=== PATIENT | male | born 1995 | race Caucasian/White ===

== ENCOUNTER 2025-07-30 11:34 | Emergency (ER) | payer OTHER ==
[~2025-07-30] VITALS: Ht 180.3 cm; Wt 70.3 kg
[2025-07-30] MEDS ORDERED: LIDOCAINE 1%-EPI 1:100,000 20 ML VIAL ONE (13:22)
[2025-07-30] MEDS ORDERED: TDAP [DIPH/PERTUSSIS/TET] 0.5 ML VIAL IM ONE (14:48)
[2025-07-30] MEDS: TDAP [DIPH/PERTUSSIS/TET] 0.5 ML VIAL IM ONE (15:03)
[2025-07-30 15:05] VITALS: BP 121/82; TEMP 97.9; O2SAT 99
== END 2025-07-30 15:05 | disposition home or self-care (01) ==
LOC: ER 11:43
DX: S01.01XA Laceration without foreign body of scalp, initial encounter (principal); S93.402A Sprain of unspecified ligament of left ankle, initial encounter; R41.82 Altered mental status, unspecified; W01.0XXA Fall on same level from slipping, tripping and stumbling without subsequent striking against object, initial encounter; Y93.89 Activity, other specified; Y92.89 Other specified places as the place of occurrence of the external cause; Y99.8 Other external cause status
CPT/HCPCS: 12001; 70450; 73610; 73630; 90471; 90715; 99285; A6403; J3490

== ENCOUNTER 2025-08-10 20:00 | Emergency (ER) | payer OTHER ==
[~2025-08-10] VITALS: Ht 180.3 cm; Wt 70.3 kg
[2025-08-10 20:07] VITALS: BP 121/74; TEMP 97.7; O2SAT 99
== END 2025-08-10 20:19 | disposition home or self-care (01) ==
LOC: ER 20:06
DX: S00.90XD Unspecified superficial injury of unspecified part of head, subsequent encounter (principal); F41.9 Anxiety disorder, unspecified; F90.9 Attention-deficit hyperactivity disorder, unspecified type; Z48.02 Encounter for removal of sutures; W19.XXXD Unspecified fall, subsequent encounter